=== PATIENT | female | born 1970 | race Hispanic/Latino ===

== ENCOUNTER 2017-03-24 15:46 | Emergency (ER) | payer BC ==
[2017-03-24 15:47] VITALS: BMI 43.0
--- NOTE | 2017-03-24 16:05 | ED PDOC ---
Arrival/HPI - General Historian: Patient - History of Present Illness Time/Duration: < week Symptom Course: Intermittent Activities at Onset: Rest <Aron Deleon - Last Filed: 03/24/17 17:56> - History of Present Illness Context: Home <Stephen Sapp - Last Filed: 03/25/17 10:05> - General Chief Complaint: Weakness/Neurological Deficit Time Seen by Provider: 03/24/17 16:00 - History of Present Illness Narrative History of Present Illness (Text): 03/24/17 16:31 46yo F with PMHx of GERD and Cervical Herniated discs here for evaluation of left sided weakness. She states that for the past three days, she has had isolated episodes of some slurred/stuttering speech, left upper lip weakness. Left jaw pain. She does report feeling anxious off and on for the past 3 days as well with associated palpitations. Patient states that she has some left sided weakness and pain, left arm worse than leg for the past 2-3 months and she associated these symptoms to her hx of herniated discs. She states that her left sided weakness/pain is worse over the past 3 days. Does report a mild headache. Denies any N/V/D. No abd pain. No CP/SOB. No recent illness. No F/C. PMD: Dr. Fletcher PMHx: GERD, Cervical disc herniation, low back pain PSHx: cholecystectomy, hysterectomy with left sided oophorectomy, and appendectomy SH: less than 1ppd for 20 years, social ETOH use, denies drugs. Allergies: CT scan dye (Aron Deleon) Past Medical History - Provider Review Nursing Documentation Reviewed: Yes - Infectious Disease Hx of Infectious Diseases: None - Cardiac Hx Cardiac Disorders: No - Pulmonary Hx Respiratory Disorders: No - Neurological Hx Neurological Disorder: No - HEENT Hx HEENT Disorder: No - Renal Hx Renal Disorder: No - Endocrine/Metabolic Hx Endocrine Disorders: No - Hematological/Oncological Hx Blood Disorders: No - Integumentary Hx Dermatological Disorder: No - Musculoskeletal/Rheumatological Hx Falls: No - Gastrointestinal Hx Gastrointestinal Disorders: No - Genitourinary/Gynecological Hx Genitourinary Disorders: No - Psychiatric Hx Psychophysiologic Disorder: No Hx Emotional Abuse: No Hx Physical Abuse: No Hx Substance Use: No - Surgical History Hx Appendectomy: Yes Hx Cardiac Catheterization: Yes (was negative) Hx Cholecystectomy: Yes Hx Hysterectomy: Yes Other/Comment: Carpel tunnel surgery - Anesthesia Hx Anesthesia: Yes Hx Anesthesia Reactions: No Hx Malignant Hyperthermia: No - Suicidal Assessment Feels Threatened In Home Enviroment: No <Aron Deleon - Last Filed: 03/24/17 17:56> Family/Social History - Physician Review Nursing Documentation Reviewed: Yes Family/Social History: No Known Family HX Smoking Status: Current Some Days Smoker Hx Alcohol Use: No Hx Substance Use: No Hx Substance Use Treatment: No <Aron Deleon - Last Filed: 03/24/17 17:56> Allergies/Home Meds <Aron Deleon - Last Filed: 03/24/17 17:56> <Stephen Sapp - Last Filed: 03/25/17 10:05> Allergies/Adverse Reactions: Allergies CT SCAN DYE Allergy (Intermediate, Uncoded 05/01/16 16:22) RASH Home Medications: Home Meds Medication Instructions Recorded Confirmed traZODone [Desyrel] 150 mg PO HS 05/12/12 03/24/17 Zolpidem [Ambien] 10 mg PO HS 11/02/15 03/24/17 Review of Systems - Physician Review All systems were reviewed & negative as marked: Yes - Review of Systems Constitutional: Normal. absent: Fevers Eyes: Normal. absent: Vision Changes, Photophobia ENT: absent: Hearing Changes, Voice Changes, Sore Throat, Rhinorrhea Respiratory: Normal Cardiovascular: Normal. absent: Chest Pain, Edema, Calf Pain, Syncope Gastrointestinal: absent: Abdominal Pain, Nausea, Vomiting Genitourinary Female: absent: Dysuria Musculoskeletal: Back Pain, Neck Pain Skin: absent: Rash Neurological: Headache, Gait Changes, Speech Changes. absent: Dizziness, Disequilibrium, Seizure Psychiatric: Anxiety <Aron Deleon - Last Filed: 03/24/17 17:56> Physical Exam Vital Signs Reviewed: Yes Temperature: Afebrile Blood Pressure: Normal Pulse: Regular Respiratory Rate: Normal Appearance: Positive for: Well-Appearing, Non-Toxic, Comfortable Pain Distress: None Mental Status: Positive for: Alert and Oriented X 3 - Systems Exam Head: Present: Atraumatic, Normocephalic Extroacular Muscles: Present: EOMI Conjunctiva: Present: Normal Mouth: Present: Moist Mucous Membranes Neck: Present: Normal Range of Motion. No: JVD Respiratory/Chest: Present: Clear to Auscultation, Good Air Exchange. No: Respiratory Distress, Accessory Muscle Use, Wheezes, Decreased Breath Sounds Cardiovascular: Present: Normal S1, S2. No: Murmurs Abdomen: No: Tenderness, Distention, Peritoneal Signs, Rebound, Guarding Upper Extremity: Present: Normal Inspection. No: Edema, Normal ROM Lower Extremity: Present: Normal Inspection, NORMAL PULSES. No: Edema, CALF TENDERNESS, Tenderness Neurological: Present: GCS=15, CN II-XII Intact, Speech Normal, Other (Reports left cheek decreased sensation to light touch. Unable to hold left lower extremity up against resistance due to pain. Reports decreased sensation to light touch to left upper extremity. No facial droop. Tongue midline. Finger to nose normal. Heel to mckeon normal. ) Skin: Present: Warm, Dry, Normal Color. No: Rashes Psychiatric: Present: Alert, Oriented x 3, Normal Insight, Normal Concentration <Aron Deleon - Last Filed: 03/24/17 17:56> Vital Signs Reviewed: Yes Temperature: Afebrile Blood Pressure: Normal Pulse: Regular Respiratory Rate: Normal Appearance: Positive for: Well-Appearing, Non-Toxic, Comfortable Pain Distress: None Mental Status: Positive for: Alert and Oriented X 3 - Systems Exam Head: Present: Atraumatic, Normocephalic Pupils: Present: PERRL Extroacular Muscles: Present: EOMI Conjunctiva: Present: Normal Mouth: Present: Moist Mucous Membranes Neck: Present: Normal Range of Motion, Paraspinal Tenderness (left sided) Respiratory/Chest: Present: Clear to Auscultation, Good Air Exchange. No: Respiratory Distress, Accessory Muscle Use Cardiovascular: Present: Regular Rate and Rhythm, Normal S1, S2. No: Murmurs Abdomen: Present: Normal Bowel Sounds. No: Tenderness, Distention, Peritoneal Signs Back: Present: Normal Inspection Upper Extremity: Present: Normal Inspection. No: Cyanosis, Edema Lower Extremity: Present: Normal Inspection, NORMAL PULSES. No: Edema Neurological: Present: GCS=15, CN II-XII Intact, Speech Normal, Motor Func Grossly Intact, Normal Sensory Function, Normal Cerebellar Funct Skin: Present: Warm, Dry, Normal Color. No: Rashes Psychiatric: Present: Alert, Oriented x 3, Normal Insight, Normal Concentration <EvitaAlexis sesaykristel Mendiola - Last Filed: 03/25/17 10:05> Vital Signs Temp Pulse Resp BP Pulse Ox 03/24/17 18:23 68 16 110/70 97 03/24/17 17:59 65 14 104/68 95 03/24/17 15:50 98.6 F 78 18 117/74 98 Medical Decision Making <Aron Deleon - Last Filed: 03/24/17 17:56> - Lab Interpretations Interpretation: No clinic. lab abnormalty (WBC mildly elevated. No suspicious clinically of infection. 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 - Possibly anxiety related. - CT Head - CBC/CMP/Mg/Phos - EKG - Reassess and dispo 03/24/17 17:56 EKG - NSR @75. No ST changes noted. Mild Leukocytosis noted. Afebrile. No evidence of any source of infection. No Cough, no congestion, no Urinary Sxs. No sick contacts CT head - no acute findings, no hemorrhage. Discussed results with patient. All questions and concerns addressed. Patient agrees to follow up with her PMD, Dr. Fletcher. (Aron Deleon) 03/24/17 16:44 46 year old female with left facial numbness and weakness x 3 days. Also chronic left arm and leg pain. r/o TIA r/o Electrolyte abnormality -- Labs -- EKG -- CT On exam patient did not exhibit slurred speech or any change in speech. Her neuro exam was normal. She did have pain when lifting her left arm and leg but with encouragement she was able to hold her arms for 10 seconds with no drift. Good finger to nose b/l with no drift. Her legs she help up with good strength for 5 seconds. She is able to walk with no ataxia. NIHSS zero. 03/24/17 17:23 Patient Seen With Resident: In agreement with resident note which contains more details about the patient. Patient was seen and evaluated with resident. Came up with plan and treatment together. 03/24/17 17:24 EKG: Ordered, reviewed, and independently interpreted the EKG. Rate : 75 BPM Rhythm : NSR Interpretation : No ST-segment elevations or depressions, no T-wave inversions, normal intervals. Comparison : No previous EKG for comparison. 03/24/17 17:56 On reexamination, patient has improved. No longer feels anxious. CT negative. I discussed with the patient the importance of follow up with Dr. Fletcher and her neurologist. I advised her to return to the ED if symptoms worsen or any other concern. (Stephen Sapp) - Lab Interpretations Lab Results: 03/24/17 16:50 03/24/17 16:50 Lab Results 03/24/17 16:50: Sodium 139, Potassium 3.8, Chloride 104, Carbon Dioxide 24, Anion Gap 15, BUN 15, Creatinine 0.7, Est GFR ( Amer) > 60, Est GFR (Non- Af Amer) > 60, Random Glucose 132 H, Calcium 9.2, Phosphorus 4.2, Magnesium 1.9 , Total Bilirubin 0.5, AST 25, ALT 28, Alkaline Phosphatase 84, Total Protein 6.9, Albumin 4.0, Globulin 2.9, Albumin/Globulin Ratio 1.4 03/24/17 16:50: WBC 12.5 H D, RBC 4.65, Hgb 14.3, Hct 41.2, MCV 88.6, MCH 30.8, MCHC 34.7, RDW 13.9, Plt Count 264, MPV 10.6, Gran % 62.3, Lymph % (Auto) 29.1, [place] % (Auto) 6.5 H, Eos % (Auto) 1.9, Baso % (Auto) 0.2, Gran # 7.79 H, Lymph # 3.6 H, [place] # 0.8 H, Eos # 0.2, Baso # 0.03 - RAD Interpretation Radiology Orders: 03/24/17 16:30 HEAD W/O CONTRAST [CT] Stat - PA / GENERAL II FARMWORKER / Resident Statement SIRIA has reviewed & agrees with the documentation as recorded. SIRIA has examined the patient and agrees with the treatment plan. <Aron Deleon - Last Filed: 03/24/17 17:56> - PA / GENERAL II FARMWORKER / Resident Statement SIRIA has reviewed & agrees with the documentation as recorded. - Scribe Statement The provider has reviewed the documentation as recorded by the Scribe <Stephen Sapp - Last Filed: 03/25/17 10:05> - Scribe Statement Arlet Garcia Provider Scribe Attestation: All medical record entries made by the Scribe were at my direction and personally dictated by me. I have reviewed the chart and agree that the record accurately reflects my personal performance of the history, physical exam, medical decision making, and the department course for this patient. I have also personally directed, reviewed, and agree with the discharge instructions and disposition. (Stephen Sapp) Disposition/Present on Arrival - Present on Arrival Any Indicators Present on Arrival: No History of DVT/PE: No History of Uncontrolled Diabetes: No Urinary Catheter: No History of Decub. Ulcer: No History Surgical Site Infection Following: None - Disposition Have Diagnosis and Disposition been Completed?: Yes Disposition Time: 18:07 Patient Plan: Discharge <Aron Deleno - Last Filed: 03/24/17 17:56> <Stephen Sapp - Last Filed: 03/25/17 10:05> - Disposition Diagnosis: Left-sided weakness Disposition: HOME/ ROUTINE Condition: GOOD Discharge Instructions (ExitCare): Cervical Radiculopathy (ED), Weakness (ED) Additional Instructions: 1. Follow up with your Primary Care Physician within 3 days 2. Stay well hydrated 3. Return to the ER with any concerning symptoms. Referrals: Vincent Fletcher MD [Primary Care Provider] - Follow up with primary Forms: [employer] ([place]i)
[2017-03-24 16:11] VITALS: TEMP 98.6
--- NOTE | 2017-03-24 16:52 | CT ---
PROCEDURE: CT HEAD WITHOUT CONTRAST. HISTORY: left sided weakness COMPARISON: 05/02/2015 TECHNIQUE: Axial computed tomography images were obtained through the head/brain without intravenous contrast. Radiation dose: Total exam DLP = 725 mGy-cm. This CT exam was performed using one or more of the following dose reduction techniques: Automated exposure control, adjustment of the mA and/or kV according to patient size, and/or use of iterative reconstruction technique. FINDINGS: HEMORRHAGE: No intracranial hemorrhage. BRAIN: No mass effect or edema. No atrophy or chronic microvascular ischemic changes. VENTRICLES: Unremarkable. No hydrocephalus. CALVARIUM: Unremarkable. PARANASAL SINUSES: Unremarkable as visualized. No significant inflammatory changes. MASTOID AIR CELLS: Unremarkable as visualized. No inflammatory changes. OTHER FINDINGS: None. IMPRESSION: No acute findings
[2017-03-24 17:27] LABS: BASO # 0.03 K/mm3 (0.0-2.0); BASO % 0.2 % (0.0-3.0); EOS # 0.2 (0.0-0.7); EOS % 1.9 % (1.5-5.0); GRAN # 7.79 (1.4-6.5); GRAN % 62.3 % (50.0-68.0); HEMOGLOBIN 14.3 g/dL (12.0-16.0); LYMPH # 3.6 (1.2-3.4); LYMPH % 29.1 % (22.0-35.0); MEAN CELL VOLUME 88.6 fl (80.0-105.0); MEAN CORPUSCULAR HEMOGLOBIN 30.8 pg (25.0-35.0); MEAN CORPUSCULAR HGB CONC 34.7 g/dl (31.0-37.0); MEAN PLATELET VOLUME 10.6 fl (7.0-11.0); MONO # 0.8 (0.1-0.6); MONO % 6.5 % (1.0-6.0); PLATELET COUNT 264 10^3/uL (120.0-450.0); RBC 4.65 10^6/uL (3.5-6.1); RED CELL DISTRIBUTION WIDTH 13.9 % (11.5-14.5); WHITE BLOOD COUNT 12.5 10^3/ul (4.5-11.0)
[2017-03-24 17:41] LABS: ALB/GLOB RATIO 1.4 (1.1-1.8); ALT/SGPT 28 U/L (7-56); AST/SGOT 25 U/L (15-39); BLOOD UREA NITROGEN 15 mg/dL (7-21); CALCIUM 9.2 mg/dL (8.4-10.5); GFR AFRICAN-AMERICAN > 60; GFR NON-AFRICAN AMERICAN > 60; MAGNESIUM 1.9 mg/dL (1.7-2.2)
[2017-03-24 18:24] VITALS: BP 110/70; PULSE 68; RESP 16; O2SAT 97
--- NOTE | 2017-03-24 21:33 | CARD ---
APPROVED REPORT EKG Measurement Heart [id number] <Conclusion> Normal sinus rhythm Low voltage QRS
== END 2017-03-24 18:25 | disposition home or self-care (01) ==
LOC: ED 15:46
DX: R53.1 Weakness (principal); K21.9 Gastro-esophageal reflux disease without esophagitis; M50.20 Other cervical disc displacement, unspecified cervical region

== ENCOUNTER 2018-09-10 08:55 | Day surgery (SDC) | payer BC ==
[2018-09-10 10:18] LABS: BASO # 0.02 K/mm3 (0.0-2.0); BASO % 0.2 % (0.0-3.0); EOS # 0.2 (0.0-0.7); EOS % 1.9 % (1.5-5.0); HEMOGLOBIN 14.5 g/dL (12.0-16.0); LYMPH # 2.4 (1.2-3.4); LYMPH % 26.3 % (22.0-35.0); MEAN CORPUSCULAR HEMOGLOBIN 29.6 pg (25.0-35.0); MEAN CORPUSCULAR HGB CONC 33.6 g/dl (31.0-37.0); MEAN PLATELET VOLUME 9.7 fl (7.0-11.0); MONO # 0.5 (0.1-0.6); MONO % 5.2 % (1.0-6.0); RBC 4.9 10^6/uL (3.5-6.1)
[2018-09-10 10:27] LABS: ALB/GLOB RATIO 1.3 (1.1-1.8); ALBUMIN 4.4 g/dL (3.0-4.8); ALT/SGPT 16 U/L (7-56); AMYLASE 50 U/L (35-125); AST/SGOT 29 U/L (14-36); BLOOD UREA NITROGEN 16 mg/dL (7-21); CALCIUM 9.9 mg/dL (8.4-10.5); GAMMA GLUTAMYL TRANSPEPTIDASE 70 U/L (8-78); GFR NON-AFRICAN AMERICAN > 60; LIPASE 50 U/L (23-300)
[2018-09-10 10:30] LABS: INR 0.98; PARTIAL THROMBOPLASTIN TIME 37.3 Seconds (26.9-38.3); PROTHROMBIN TIME 11.1 SECONDS (9.4-12.5)
[2018-09-10] MEDS ORDERED: Midazolam 2 MG/2 ML VIAL ONE (12:17)
[2018-09-10] MEDS ORDERED: Propofol 10 mg/ml Inj (20 ML) ONE (12:17)
[2018-09-10] MEDS ORDERED: Etomidate 20 mg/10ml Inj IV ONE (12:18)
[2018-09-10] MEDS ORDERED: Sodium Chloride 0.9% 1,000 ML IV SCH (14:30)
[2018-09-10 14:31] VITALS: O2SAT 96
[2018-09-10 15:21] VITALS: BP 121/71; PULSE 75; RESP 18; TEMP 98.6
[2018-09-10] MEDS ORDERED: Sucralfate 1 gm/10 ml Oral Susp UD PO STA (15:23)
[2018-09-10] MEDS ORDERED: Sucralfate 1 gm/10 ml Oral Susp UD PO ONE (15:45)
== END 2018-09-10 15:50 | disposition home or self-care (01) ==
LOC: ENDO 08:55
PROVIDERS: ATTEND Internal Medicine Gastroenterology
DX: K22.10 Ulcer of esophagus without bleeding (principal); K29.50 Unspecified chronic gastritis without bleeding; R10.13 Epigastric pain; R19.7 Diarrhea, unspecified; K57.30 Diverticulosis of large intestine without perforation or abscess without bleeding; K64.8 Other hemorrhoids; K64.4 Residual hemorrhoidal skin tags; Z80.0 Family history of malignant neoplasm of digestive organs
CPT/HCPCS: 36415; 43239; 43259; 80053; 82150; 82977; 83690; 85025; 85610; 85730; 88305; 88312; 88342; J2001; J2250; J2704; J3010; J7030; J7040

== ENCOUNTER → 2018-10-22 | Outpatient (CLI) | payer BC | LOC: CARDIO 07:53 | DX: R07.9 Chest pain, unspecified (principal) ==